=== PATIENT | female | born 1935 ===

== ENCOUNTER → 2016-10-09 | Outpatient (CLI) | payer MEDICARE | LOC: LAB 06:52 | DX: E03.9 Hypothyroidism, unspecified (principal) ==

== ENCOUNTER → 2016-10-24 | Outpatient (CLI) | payer MEDICARE | LOC: LAB 06:40 | DX: I48.91 Unspecified atrial fibrillation (principal) ==

== ENCOUNTER → 2016-10-31 | Outpatient (CLI) | payer MEDICARE | LOC: LAB 06:05 | DX: Z79.01 Long term (current) use of anticoagulants (principal) ==

== ENCOUNTER → 2016-11-28 | Outpatient (CLI) | payer MEDICARE | LOC: LAB 05:26 | DX: Z51.81 Encounter for therapeutic drug level monitoring (principal); Z79.01 Long term (current) use of anticoagulants; I48.91 Unspecified atrial fibrillation ==

== ENCOUNTER → 2017-01-02 | Outpatient (CLI) | payer MEDICARE | LOC: LAB 05:22 | DX: Z79.01 Long term (current) use of anticoagulants (principal); Z51.81 Encounter for therapeutic drug level monitoring; I48.91 Unspecified atrial fibrillation ==

== ENCOUNTER → 2017-01-30 | Outpatient (CLI) | payer MEDICARE | LOC: LAB 06:09 | DX: Z51.81 Encounter for therapeutic drug level monitoring (principal); Z79.01 Long term (current) use of anticoagulants; I48.91 Unspecified atrial fibrillation ==

== ENCOUNTER → 2017-03-03 | Outpatient (CLI) | payer MEDICARE, MEDICAID | LOC: LAB 06:58 | DX: Z51.81 Encounter for therapeutic drug level monitoring (principal); Z79.01 Long term (current) use of anticoagulants; I48.91 Unspecified atrial fibrillation ==

== ENCOUNTER → 2017-03-17 | Outpatient (CLI) | payer MEDICARE, MEDICAID | LOC: LAB 10:15 | DX: Z51.81 Encounter for therapeutic drug level monitoring (principal); Z79.01 Long term (current) use of anticoagulants; I63.9 Cerebral infarction, unspecified ==

== ENCOUNTER → 2017-03-18 | Outpatient (CLI) | payer MEDICARE, MEDICAID | LOC: LAB 08:10 | DX: R41.0 Disorientation, unspecified (principal) ==

== ENCOUNTER → 2017-04-01 | Outpatient (CLI) | payer MEDICARE, MEDICAID | LOC: LAB 05:00 | DX: Z51.81 Encounter for therapeutic drug level monitoring (principal); Z79.01 Long term (current) use of anticoagulants; I48.91 Unspecified atrial fibrillation ==

== ENCOUNTER → 2017-04-07 | Outpatient (CLI) | payer MEDICARE, MEDICAID | LOC: LAB 13:55 | DX: Z51.81 Encounter for therapeutic drug level monitoring (principal); Z79.01 Long term (current) use of anticoagulants ==

== ENCOUNTER → 2017-04-21 | Outpatient (CLI) | payer MEDICARE, MEDICAID | LOC: LAB 06:20 | DX: Z51.81 Encounter for therapeutic drug level monitoring (principal); Z79.01 Long term (current) use of anticoagulants; I63.9 Cerebral infarction, unspecified ==

== ENCOUNTER → 2017-05-19 | Outpatient (CLI) | payer MEDICARE, MEDICAID | LOC: LAB 06:05 | DX: I48.91 Unspecified atrial fibrillation (principal); Z79.01 Long term (current) use of anticoagulants ==

== ENCOUNTER → 2017-06-17 | Outpatient (CLI) | payer MEDICARE, MEDICAID | LOC: LAB 05:10 | DX: I48.91 Unspecified atrial fibrillation (principal); Z79.01 Long term (current) use of anticoagulants ==

== ENCOUNTER → 2017-07-09 | Outpatient (CLI) | payer MEDICARE, MEDICAID | LOC: RAD 14:21 | DX: R22.41 Localized swelling, mass and lump, right lower limb (principal) ==

== ENCOUNTER → 2017-07-15 | Outpatient (CLI) | payer MEDICARE, MEDICAID ==
[2017-07-15 06:03] LABS: CALCIUM 10.2 mg/dL (8.4-10.2)
[2017-07-15 06:33] LABS: POTASSIUM 4.3 mmol/L (3.6-5.0); PROTHROMBIN TIME 19.6 SECONDS (9.0-12.0)
== END ==
LOC: LAB 05:35
PROVIDERS: Family Medicine
DX: I48.91 Unspecified atrial fibrillation (principal); I10 Essential (primary) hypertension; Z79.01 Long term (current) use of anticoagulants

== ENCOUNTER → 2017-08-14 | Outpatient (CLI) | payer MEDICARE, MEDICAID | LOC: LAB 05:37 | PROVIDERS: Family Medicine | DX: G45.9 Transient cerebral ischemic attack, unspecified (principal); Z79.01 Long term (current) use of anticoagulants ==

== ENCOUNTER 2017-08-27 14:57 | Emergency (ER) | payer MEDICARE, MEDICAID ==
[~2017-08-27] VITALS: Ht 152.4 cm; Wt 68.6 kg
[2017-08-27] MEDS ORDERED: ACETAMINOPHEN325 M1 PO (15:18)
[2017-08-27] MEDS ORDERED: OPTIMUM AC500 Millio PO (15:19)
[2017-08-27] MEDS ORDERED: ALBUTEROL2.5 MG/3 M IH (15:20)
[2017-08-27] MEDS ORDERED: COLACE100 M1 PO (15:21)
[2017-08-27] MEDS ORDERED: COUMADIN 4MG4 MG/TAB PO (15:22)
[2017-08-27] MEDS ORDERED: FLEET ENEM1 BOT/133 RC (15:22)
[2017-08-27] MEDS ORDERED: WARFARIN SOD2 MG PO (15:22)
[2017-08-27] MEDS ORDERED: LEVOTHYROXINE100 MC1 PO (15:23)
[2017-08-27] MEDS ORDERED: HYDROCHLOROTH12.5 M2 PO (15:23)
[2017-08-27] MEDS ORDERED: LOPRESSOR 550 MG/TAB PO (15:24)
[2017-08-27] MEDS ORDERED: ZESTRIL5 M1 PO (15:24)
[2017-08-27] MEDS ORDERED: LEVOTHYROXINE0.05 MG PO (15:24)
[2017-08-27] MEDS ORDERED: MS CONTIN 115 MG/TAB PO (15:25)
[2017-08-27] MEDS ORDERED: MULTIVITAMIN1 SGL PO (15:25)
[2017-08-27] MEDS ORDERED: MIRALAX17 GM PO (15:25)
[2017-08-27] MEDS ORDERED: ALUMINUM & MAG355 ML PO (15:27)
[2017-08-27] MEDS ORDERED: ALDACTONE 25MG25 MG PO (15:27)
[2017-08-27] MEDS ORDERED: PRILOSEC 20MG20 MG PO (15:27)
[2017-08-27] MEDS ORDERED: TRAMADOL 50 MG TAB PO (15:27)
[2017-08-27 16:23] VITALS: BP 147/92
== END 2017-08-27 17:26 | disposition home or self-care (01) ==
LOC: ED 14:57
DX: D17.23 Benign lipomatous neoplasm of skin and subcutaneous tissue of right leg (principal); I48.91 Unspecified atrial fibrillation; Z79.01 Long term (current) use of anticoagulants; I25.10 Atherosclerotic heart disease of native coronary artery without angina pectoris; F03.90 Unspecified dementia, unspecified severity, without behavioral disturbance, psychotic disturbance, mood disturbance, and anxiety; I95.9 Hypotension, unspecified; E11.9 Type 2 diabetes mellitus without complications; F41.9 Anxiety disorder, unspecified; K21.9 Gastro-esophageal reflux disease without esophagitis; E03.9 Hypothyroidism, unspecified; Z86.73 Personal history of transient ischemic attack (TIA), and cerebral infarction without residual deficits

== ENCOUNTER → 2017-09-11 | Outpatient (CLI) | payer MEDICARE, MEDICAID ==
[2017-08-27 16:23] VITALS: BP 147/92
[~2017-09-11] MED LIST: ACETAMINOPHEN325 M1 PO; ALBUTEROL2.5 MG/3 M IH; ALDACTONE 25MG25 MG PO; ALUMINUM & MAG355 ML PO; COLACE100 M1 PO; COUMADIN 4MG4 MG/TAB PO; FLEET ENEM1 BOT/133 RC; HYDROCHLOROTH12.5 M2 PO; LEVOTHYROXINE0.05 MG PO; LEVOTHYROXINE100 MC1 PO; LOPRESSOR 550 MG/TAB PO; MIRALAX17 GM PO; MS CONTIN 115 MG/TAB PO; MULTIVITAMIN1 SGL PO; OPTIMUM AC500 Millio PO; PRILOSEC 20MG20 MG PO; TRAMADOL 50 MG TAB PO; WARFARIN SOD2 MG PO; ZESTRIL5 M1 PO
[2017-09-11 06:33] LABS: PROTHROMBIN TIME 26.6 SECONDS (9.0-12.0)
== END ==
LOC: LAB 05:30
PROVIDERS: Family Medicine
DX: G45.9 Transient cerebral ischemic attack, unspecified (principal); Z79.01 Long term (current) use of anticoagulants

== ENCOUNTER → 2017-09-15 | Outpatient (CLI) | payer MEDICARE, MEDICAID ==
[2017-08-27 16:23] VITALS: BP 147/92
== END ==
LOC: LAB 07:13
PROVIDERS: Family Medicine
DX: I48.91 Unspecified atrial fibrillation (principal)

== ENCOUNTER → 2017-10-16 | Outpatient (CLI) | payer MEDICARE, MEDICAID ==
[2017-10-16 06:30] LABS: PROTHROMBIN TIME 25.7 SECONDS (9.0-12.0)
== END ==
LOC: LAB 06:01
PROVIDERS: Family Medicine
DX: Z51.81 Encounter for therapeutic drug level monitoring (principal); Z79.01 Long term (current) use of anticoagulants

== ENCOUNTER → 2017-11-12 | Outpatient (CLI) | payer MEDICARE, MEDICAID ==
[2017-11-12 06:09] LABS: BUN/CREATININE RATIO 18.4 (6.0-26.0); CALCIUM 9.5 mg/dL (8.4-10.2); POTASSIUM 4.9 mmol/L (3.6-5.0)
[2017-11-12 14:20] LABS: URINE APPEARANCE HAZY; URINE COLOR YELLOW
[2017-11-12 14:21] LABS: URINE BILIRUBIN NEGATIVE (NEGATIVE); URINE BLOOD NEGATIVE (NEGATIVE); URINE GLUCOSE NEGATIVE (NEGATIVE); URINE KETONE NEGATIVE (NEGATIVE); URINE LEUKOCYTE ESTERASE 2+ (NEGATIVE); URINE NITRATE NEGATIVE (NEGATIVE); URINE PROTEIN(semi-quant) TRACE mg/dL (NEGATIVE); URINE UROBILINOGEN NORMAL (NORMAL); URINE WBC 31-50 /hpf (0-3)
== END ==
LOC: LAB 05:34
PROVIDERS: Family Medicine
DX: R41.0 Disorientation, unspecified (principal)

== ENCOUNTER → 2017-11-14 | Outpatient (CLI) | payer MEDICARE, MEDICAID ==
[2017-11-14 07:48] LABS: PROTHROMBIN TIME 75.7 SECONDS (9.0-12.0)
== END ==
LOC: LAB 06:30
PROVIDERS: Family Medicine
DX: I48.91 Unspecified atrial fibrillation (principal); Z79.01 Long term (current) use of anticoagulants

== ENCOUNTER → 2017-11-17 | Outpatient (CLI) | payer MEDICARE, MEDICAID ==
[2017-11-17 12:05] LABS: PROTHROMBIN TIME 20.8 SECONDS (9.0-12.0)
== END ==
LOC: LAB 11:20
PROVIDERS: Family Medicine
DX: Z79.01 Long term (current) use of anticoagulants (principal); Z86.73 Personal history of transient ischemic attack (TIA), and cerebral infarction without residual deficits

== ENCOUNTER → 2017-12-15 | Outpatient (CLI) | payer MEDICARE, MEDICAID ==
[2017-12-15 13:28] LABS: PROTHROMBIN TIME 14.4 SECONDS (9.0-12.0)
== END ==
LOC: LAB 12:41
PROVIDERS: Family Medicine
DX: I73.9 Peripheral vascular disease, unspecified (principal); G45.9 Transient cerebral ischemic attack, unspecified; Z79.01 Long term (current) use of anticoagulants

== ENCOUNTER → 2017-12-29 | Outpatient (CLI) | payer MEDICARE, MEDICAID ==
[2017-12-29 07:30] LABS: PROTHROMBIN TIME 22.4 SECONDS (9.0-12.0)
== END ==
LOC: LAB 07:16
PROVIDERS: Family Medicine
DX: G45.9 Transient cerebral ischemic attack, unspecified (principal); Z79.01 Long term (current) use of anticoagulants

== ENCOUNTER → 2018-01-30 | Outpatient (CLI) | payer MEDICARE, MEDICAID ==
[2018-01-30 11:22] LABS: PROTHROMBIN TIME 19.2 SECONDS (9.0-12.0)
== END ==
LOC: LAB 09:10
PROVIDERS: Family Medicine
DX: I63.9 Cerebral infarction, unspecified (principal); E03.9 Hypothyroidism, unspecified; E05.90 Thyrotoxicosis, unspecified without thyrotoxic crisis or storm; Z79.01 Long term (current) use of anticoagulants

== ENCOUNTER → 2018-03-02 | Outpatient (CLI) | payer MEDICARE, MEDICAID | LOC: LAB 11:10 | PROVIDERS: Family Medicine | DX: Z51.81 Encounter for therapeutic drug level monitoring (principal); Z79.01 Long term (current) use of anticoagulants ==

== ENCOUNTER → 2018-03-30 | Outpatient (CLI) | payer MEDICARE, MEDICAID ==
[2018-03-30 08:11] LABS: PROTHROMBIN TIME 17.8 SECONDS (9.0-12.0)
== END ==
LOC: LAB 07:06
PROVIDERS: Family Medicine
DX: Z51.81 Encounter for therapeutic drug level monitoring (principal); Z79.01 Long term (current) use of anticoagulants; I48.91 Unspecified atrial fibrillation

== ENCOUNTER → 2018-04-30 | Outpatient (CLI) | payer MEDICARE, MEDICAID ==
[2018-04-30 07:36] LABS: PROTHROMBIN TIME 29.4 SECONDS (9.0-12.0)
== END ==
LOC: LAB 06:50
PROVIDERS: Family Medicine
DX: I63.9 Cerebral infarction, unspecified (principal)

== ENCOUNTER → 2018-05-14 | Outpatient (CLI) | payer MEDICARE, MEDICAID ==
[2018-05-14 06:44] LABS: PROTHROMBIN TIME 29.6 SECONDS (9.0-12.0)
== END ==
LOC: LAB 06:05
PROVIDERS: Family Medicine
DX: Z51.81 Encounter for therapeutic drug level monitoring (principal); Z79.01 Long term (current) use of anticoagulants; I48.91 Unspecified atrial fibrillation

== ENCOUNTER → 2018-06-11 | Outpatient (CLI) | payer MEDICARE, MEDICAID ==
[2018-06-11 07:04] LABS: PROTHROMBIN TIME 21.1 SECONDS (9.0-12.0)
== END ==
LOC: LAB 06:25
PROVIDERS: Family Medicine
DX: Z51.81 Encounter for therapeutic drug level monitoring (principal); Z79.01 Long term (current) use of anticoagulants; I48.91 Unspecified atrial fibrillation

== ENCOUNTER → 2018-07-04 | Outpatient (CLI) | payer MEDICARE, MEDICAID ==
[2018-07-04 11:20] LABS: URINE APPEARANCE CLEAR; URINE BILIRUBIN NEGATIVE (NEGATIVE); URINE BLOOD NEGATIVE (NEGATIVE); URINE COLOR YELLOW; URINE GLUCOSE NEGATIVE (NEGATIVE); URINE KETONE NEGATIVE (NEGATIVE); URINE LEUKOCYTE ESTERASE NEGATIVE (NEGATIVE); URINE NITRATE NEGATIVE (NEGATIVE); URINE PROTEIN(semi-quant) NEGATIVE (NEGATIVE); URINE UROBILINOGEN NORMAL (NORMAL); URINE WBC 0-1 /hpf (0-3)
== END ==
LOC: LAB 10:35
PROVIDERS: Nurse Practitioner Family
DX: R45.1 Restlessness and agitation (principal); R41.0 Disorientation, unspecified; F60.9 Personality disorder, unspecified

== ENCOUNTER → 2018-07-09 | Outpatient (CLI) | payer MEDICARE, MEDICAID ==
[2018-07-09 08:14] LABS: PROTHROMBIN TIME 29.4 SECONDS (9.0-12.0)
== END ==
LOC: LAB 06:30
PROVIDERS: Family Medicine
DX: Z51.81 Encounter for therapeutic drug level monitoring (principal); Z79.01 Long term (current) use of anticoagulants; I48.91 Unspecified atrial fibrillation

== ENCOUNTER → 2018-07-23 | Outpatient (CLI) | payer MEDICARE, MEDICAID ==
[2018-07-23 07:55] LABS: PROTHROMBIN TIME 31.4 SECONDS (9.0-12.0)
== END ==
LOC: LAB 07:34
PROVIDERS: Family Medicine
DX: I48.91 Unspecified atrial fibrillation (principal); Z79.01 Long term (current) use of anticoagulants

== ENCOUNTER → 2018-08-06 | Outpatient (CLI) | payer MEDICARE, MEDICAID | LOC: LAB 05:20 | PROVIDERS: Family Medicine | DX: Z79.01 Long term (current) use of anticoagulants (principal) ==

== ENCOUNTER → 2018-08-13 | Outpatient (CLI) | payer MEDICARE, MEDICAID ==
[2018-08-13 06:09] LABS: PROTHROMBIN TIME 22.1 SECONDS (9.0-12.0)
== END ==
LOC: LAB 05:25
PROVIDERS: Family Medicine
DX: Z51.81 Encounter for therapeutic drug level monitoring (principal); Z79.01 Long term (current) use of anticoagulants; I48.91 Unspecified atrial fibrillation

== ENCOUNTER → 2018-09-10 | Outpatient (CLI) | payer MEDICARE, MEDICAID ==
[2018-09-10 08:45] LABS: PROTHROMBIN TIME 20.7 SECONDS (9.0-12.0)
== END ==
LOC: LAB 06:55
PROVIDERS: Family Medicine
DX: Z51.81 Encounter for therapeutic drug level monitoring (principal); Z79.01 Long term (current) use of anticoagulants; I48.91 Unspecified atrial fibrillation

== ENCOUNTER → 2018-09-24 | Outpatient (CLI) | payer MEDICARE, MEDICAID ==
[2018-09-25 07:24] LABS: PH-URINE 6.5 (5.0 - 8.0); URINE APPEARANCE CLOUDY; URINE BILIRUBIN NEGATIVE (NEGATIVE); URINE BLOOD NEGATIVE (NEGATIVE); URINE COLOR YELLOW; URINE GLUCOSE NEGATIVE (NEGATIVE); URINE KETONE NEGATIVE (NEGATIVE); URINE LEUKOCYTE ESTERASE 1+ (NEGATIVE); URINE MUCUS PRESENT (NOT PRESENT); URINE NITRATE NEGATIVE (NEGATIVE); URINE PROTEIN(semi-quant) 1+ mg/dL (NEGATIVE); URINE UROBILINOGEN NORMAL (NORMAL)
== END ==
LOC: LAB 18:30
PROVIDERS: Family Medicine
DX: R44.1 Visual hallucinations (principal)

== ENCOUNTER → 2018-09-24 | Outpatient (CLI) | payer MEDICARE, MEDICAID ==
[2018-09-24 12:11] LABS: ALBUMIN 4.3 g/dL (3.5-5.0); POTASSIUM 4.6 mmol/L (3.6-5.0)
== END ==
LOC: LAB 11:54
PROVIDERS: Family Medicine
DX: R44.1 Visual hallucinations (principal)

== ENCOUNTER → 2018-09-28 | Outpatient (CLI) | payer MEDICARE, MEDICAID ==
[2018-09-28 14:32] LABS: ALBUMIN 4.4 g/dL (3.5-5.0); CALCIUM 10.4 mg/dL (8.4-10.2); POTASSIUM 5.1 mmol/L (3.6-5.0); TOTAL PROTEIN 7.4 g/dL (6.3-8.2)
== END ==
LOC: LAB 13:57
PROVIDERS: Family Medicine
DX: E87.1 Hypo-osmolality and hyponatremia (principal)

== ENCOUNTER → 2018-10-09 | Outpatient (CLI) | payer MEDICARE, MEDICAID ==
[2018-10-09 08:36] LABS: POTASSIUM 4.4 mmol/L (3.6-5.0)
== END ==
LOC: LAB 07:05
PROVIDERS: Family Medicine
DX: E87.1 Hypo-osmolality and hyponatremia (principal)

== ENCOUNTER → 2018-10-12 | Outpatient (CLI) | payer MEDICARE, MEDICAID ==
[2018-10-12 12:42] LABS: PROTHROMBIN TIME 25.6 SECONDS (9.0-12.0)
== END ==
LOC: LAB 11:21
PROVIDERS: Family Medicine
DX: I48.91 Unspecified atrial fibrillation (principal)

== ENCOUNTER → 2018-10-20 | Outpatient (CLI) | payer MEDICARE, MEDICAID ==
[2018-10-21 11:12] LABS: PH-URINE 6.5 (5.0 - 8.0); URINE APPEARANCE CLEAR; URINE BILIRUBIN NEGATIVE (NEGATIVE); URINE BLOOD NEGATIVE (NEGATIVE); URINE COLOR YELLOW; URINE GLUCOSE NEGATIVE (NEGATIVE); URINE KETONE NEGATIVE (NEGATIVE); URINE LEUKOCYTE ESTERASE NEGATIVE (NEGATIVE); URINE NITRATE NEGATIVE (NEGATIVE); URINE PROTEIN(semi-quant) 1+ mg/dL (NEGATIVE); URINE UROBILINOGEN NORMAL (NORMAL)
== END ==
LOC: LAB 21:55
PROVIDERS: Family Medicine
DX: R41.0 Disorientation, unspecified (principal); R44.3 Hallucinations, unspecified

== ENCOUNTER → 2018-10-20 | Outpatient (CLI) | payer MEDICARE, MEDICAID ==
[2018-10-20 06:29] LABS: CALCIUM 10.4 mg/dL (8.4-10.2); POTASSIUM 4.2 mmol/L (3.6-5.0); TOTAL BILIRUBIN 0.6 mg/dL (0.2-1.3)
== END ==
LOC: LAB 04:55
PROVIDERS: Family Medicine
DX: E78.1 Pure hyperglyceridemia (principal)

== ENCOUNTER → 2018-10-26 | Outpatient (CLI) | payer MEDICARE, MEDICAID ==
[2018-10-26 08:11] LABS: ALBUMIN 3.9 g/dL (3.5-5.0); CALCIUM 10.5 mg/dL (8.4-10.2); POTASSIUM 4.2 mmol/L (3.6-5.0); TOTAL PROTEIN 6.8 g/dL (6.3-8.2)
== END ==
LOC: LAB 06:45
PROVIDERS: Family Medicine
DX: R79.9 Abnormal finding of blood chemistry, unspecified (principal)

== ENCOUNTER → 2018-11-09 | Outpatient (CLI) | payer MEDICARE, MEDICAID ==
[2018-11-09 10:55] LABS: PROTHROMBIN TIME 23.9 SECONDS (9.0-12.0)
== END ==
LOC: LAB 09:25
PROVIDERS: Family Medicine
DX: Z51.81 Encounter for therapeutic drug level monitoring (principal); Z79.01 Long term (current) use of anticoagulants; I48.91 Unspecified atrial fibrillation

== ENCOUNTER → 2018-12-07 | Outpatient (CLI) | payer MEDICARE, MEDICAID ==
[2018-12-07 14:24] LABS: PROTHROMBIN TIME 21.4 SECONDS (9.0-12.0)
== END ==
LOC: LAB 13:40
PROVIDERS: Family Medicine
DX: I48.91 Unspecified atrial fibrillation (principal)

== ENCOUNTER → 2019-01-07 | Outpatient (CLI) | payer MEDICARE, MEDICAID | LOC: LAB 07:30 | PROVIDERS: Physician Assistant Medical | DX: I48.91 Unspecified atrial fibrillation (principal); Z79.01 Long term (current) use of anticoagulants ==

== ENCOUNTER → 2019-02-05 | Outpatient (CLI) | payer MEDICARE, MEDICAID ==
[2019-02-05 07:28] LABS: PROTHROMBIN TIME 24.5 SECONDS (9.0-12.0)
== END ==
LOC: LAB 06:40
PROVIDERS: Family Medicine
DX: I63.9 Cerebral infarction, unspecified (principal); Z79.01 Long term (current) use of anticoagulants

== ENCOUNTER → 2019-03-08 | Outpatient (CLI) | payer MEDICARE, MEDICAID ==
[2019-03-08 09:14] LABS: PROTHROMBIN TIME 20.2 SECONDS (9.0-12.0)
== END ==
LOC: LAB 06:56
PROVIDERS: Family Medicine
DX: I48.91 Unspecified atrial fibrillation (principal)

== ENCOUNTER → 2019-04-07 | Outpatient (CLI) | payer MEDICARE, MEDICAID ==
[2019-04-07 07:49] LABS: PROTHROMBIN TIME 16.8 SECONDS (9.0-12.0)
== END ==
LOC: LAB 06:18
PROVIDERS: Family Medicine
DX: G45.9 Transient cerebral ischemic attack, unspecified (principal); I73.9 Peripheral vascular disease, unspecified

== ENCOUNTER → 2019-04-22 | Outpatient (CLI) | payer MEDICARE, MEDICAID ==
[2019-04-22 07:34] LABS: PROTHROMBIN TIME 18.3 SECONDS (9.0-12.0)
== END ==
LOC: LAB 06:05
PROVIDERS: Physician Assistant
DX: G45.9 Transient cerebral ischemic attack, unspecified (principal)

== ENCOUNTER → 2019-05-21 | Outpatient (CLI) | payer MEDICARE, MEDICAID ==
[2019-05-21 07:14] LABS: PROTHROMBIN TIME 20.5 SECONDS (9.0-12.0)
== END ==
LOC: LAB 06:15
PROVIDERS: Family Medicine
DX: I48.91 Unspecified atrial fibrillation (principal); I63.9 Cerebral infarction, unspecified

== ENCOUNTER → 2019-06-21 | Outpatient (CLI) | payer MEDICARE, MEDICAID ==
[2019-06-21 08:22] LABS: PROTHROMBIN TIME 19.9 SECONDS (9.0-12.0)
== END ==
LOC: LAB 07:43
PROVIDERS: Family Medicine
DX: I22.2 Subsequent non-ST elevation (NSTEMI) myocardial infarction (principal); Z79.01 Long term (current) use of anticoagulants

== ENCOUNTER → 2019-07-19 | Outpatient (CLI) | payer MEDICARE, MEDICAID ==
[2019-07-19 07:28] LABS: PROTHROMBIN TIME 18.5 SECONDS (9.0-12.0)
== END ==
LOC: LAB 06:30
PROVIDERS: Family Medicine
DX: I48.91 Unspecified atrial fibrillation (principal); Z79.01 Long term (current) use of anticoagulants

== ENCOUNTER → 2019-07-23 | Outpatient (CLI) | payer MEDICARE, MEDICAID | LOC: LAB 05:30 | PROVIDERS: Family Medicine | DX: I48.91 Unspecified atrial fibrillation (principal) ==

== ENCOUNTER → 2019-07-26 | Outpatient (CLI) | payer MEDICARE, MEDICAID ==
[2019-07-26 07:57] LABS: PROTHROMBIN TIME 48.8 SECONDS (9.0-12.0)
== END ==
LOC: LAB 06:58
PROVIDERS: Family Medicine
DX: I48.91 Unspecified atrial fibrillation (principal); Z79.01 Long term (current) use of anticoagulants

== ENCOUNTER → 2019-08-05 | Outpatient (CLI) | payer MEDICARE, MEDICAID ==
[2019-08-05 09:03] LABS: PROTHROMBIN TIME 22.1 SECONDS (9.0-12.0)
== END ==
LOC: LAB 06:45
PROVIDERS: Family Medicine
DX: I48.91 Unspecified atrial fibrillation (principal)

== ENCOUNTER → 2019-08-16 | Outpatient (CLI) | payer MEDICARE, MEDICAID ==
[2019-08-16 08:45] LABS: PROTHROMBIN TIME 21.3 SECONDS (9.0-12.0)
== END ==
LOC: LAB 07:38
PROVIDERS: Family Medicine
DX: I48.91 Unspecified atrial fibrillation (principal)

== ENCOUNTER → 2019-09-13 | Outpatient (CLI) | payer MEDICARE, MEDICAID ==
[2019-09-13 09:14] LABS: PROTHROMBIN TIME 22.3 SECONDS (9.0-12.0)
== END ==
LOC: LAB 06:35
PROVIDERS: Family Medicine
DX: Z51.81 Encounter for therapeutic drug level monitoring (principal); Z79.01 Long term (current) use of anticoagulants

== ENCOUNTER → 2019-10-11 | Outpatient (CLI) | payer MEDICARE, MEDICAID | LOC: LAB 08:09 | PROVIDERS: Family Medicine | DX: I48.91 Unspecified atrial fibrillation (principal) ==

== ENCOUNTER → 2019-11-08 | Outpatient (CLI) | payer MEDICARE, MEDICAID ==
[2019-11-08 07:33] LABS: PROTHROMBIN TIME 23.7 SECONDS (9.0-12.0)
== END ==
LOC: LAB 06:43
PROVIDERS: Family Medicine
DX: Z01.89 Encounter for other specified special examinations (principal)

== ENCOUNTER → 2019-12-06 | Outpatient (CLI) | payer MEDICARE, MEDICAID | LOC: LAB 07:52 | PROVIDERS: Family Medicine | DX: I48.91 Unspecified atrial fibrillation (principal) ==

== ENCOUNTER → 2019-12-29 | Outpatient (CLI) | payer MEDICARE, MEDICAID | LOC: LAB 07:21 | DX: E03.9 Hypothyroidism, unspecified (principal) ==

== ENCOUNTER → 2020-01-07 | Outpatient (CLI) | payer MEDICARE, MEDICAID ==
[2020-01-07 14:25] LABS: PROTHROMBIN TIME 29.9 SECONDS (9.0-12.0)
== END ==
LOC: LAB 13:45
PROVIDERS: Family Medicine
DX: G45.9 Transient cerebral ischemic attack, unspecified (principal)

== ENCOUNTER → 2020-01-24 | Outpatient (CLI) | payer MEDICARE, MEDICAID ==
[2020-01-24 11:13] LABS: PROTHROMBIN TIME 32.6 SECONDS (9.0-12.0)
[2020-01-24 18:30] LABS: URINE APPEARANCE CLOUDY; URINE BILIRUBIN NEGATIVE (NEGATIVE); URINE BLOOD TRACE (NEGATIVE); URINE COLOR YELLOW; URINE GLUCOSE NEGATIVE (NEGATIVE); URINE KETONE NEGATIVE (NEGATIVE); URINE LEUKOCYTE ESTERASE 1+ (NEGATIVE); URINE NITRATE POSITIVE (NEGATIVE); URINE PROTEIN(semi-quant) TRACE mg/dL (NEGATIVE); URINE UROBILINOGEN NORMAL (NORMAL); URINE WBC >50 /hpf (0-3)
== END ==
LOC: LAB 10:59
PROVIDERS: Family Medicine
DX: Z51.81 Encounter for therapeutic drug level monitoring (principal); Z79.01 Long term (current) use of anticoagulants

== ENCOUNTER 2020-02-01 16:12 | Observation (INO) | payer MEDICARE, MEDICAID ==
[~2020-02-01] VITALS: Ht 160 cm; Wt 71.5 kg
[~2020-02-01 16:12] MED LIST changes: +COUMADIN 2MG2 MG/TAB PO; -WARFARIN SOD2 MG PO
[2020-02-01 17:49] LABS: EOS # 0.1 (0.04-0.40); EOS % 0.9 % (1.0-5.0); HEMATOCRIT 40.9 % (37.0-47.0); HEMOGLOBIN 13.2 g/dL (12.5-16.0); LYMPH# 1.4 (1.50-4.00); MEAN CELL VOLUME 90 fl (78-100); MEAN CORPUSCULAR HEMOGLOBIN 29 pg (27-31); MEAN CORPUSCULAR HGB CONC 32 g/dL (33-37); MEAN PLATELET VOLUME 9.7 fl (7.4-10.4); MONO # 0.2 (0.20-0.80); PLATELET COUNT 188 K/mm3 (130-400); RED BLOOD COUNT 4.57 M/mm3 (4.10-5.30); RED CELL DISTRIBUTION WIDTH 14.1 % (11.5-14.5); WHITE BLOOD COUNT 7.7 K/mm3 (4.8-10.8)
[2020-02-01 18:00] LABS: ALBUMIN 3.8 g/dL (3.4-4.8)
[2020-02-01 18:01] LABS: POTASSIUM 4.6 mmol/L (3.5-5.1)
[2020-02-01 18:03] LABS: TOTAL PROTEIN 6.7 g/dL (6.2-8.1)
[2020-02-01 18:05] LABS: TOTAL BILIRUBIN 0.6 mg/dL (0.2-1.2)
[2020-02-01] MEDS ORDERED: ICY HOT PAIN70.8 GM TP (18:12)
[2020-02-01] MEDS ORDERED: CLARITIN 1010 MG/TAB PO (18:13)
[2020-02-01] MEDS ORDERED: HALLS5 MG MM (18:15)
[2020-02-01] MEDS ORDERED: PREDNISONE20 M1 PO (18:19)
[2020-02-01] MEDS ORDERED: DESENEX43 GM TP (18:22)
[2020-02-01 19:09] LABS: PROTHROMBIN TIME 44.3 SECONDS (9.0-12.0)
[2020-02-01 19:11] LABS: ERYTHROCYTE SEDIMENTATION RATE 31 mm/hr (0-30)
[2020-02-01 20:20] LABS: PH-URINE 5.5 (5.0 - 8.0); URINE APPEARANCE CLEAR; URINE BILIRUBIN NEGATIVE (NEGATIVE); URINE BLOOD NEGATIVE (NEGATIVE); URINE COLOR YELLOW; URINE GLUCOSE NEGATIVE (NEGATIVE); URINE KETONE NEGATIVE (NEGATIVE); URINE LEUKOCYTE ESTERASE NEGATIVE (NEGATIVE); URINE NITRATE NEGATIVE (NEGATIVE); URINE PROTEIN(semi-quant) TRACE mg/dL (NEGATIVE); URINE UROBILINOGEN NORMAL (NORMAL); URINE WBC 0-1 /hpf (0-3)
[2020-02-01 20:35] VITALS: BP 114/66
[2020-02-01 22:19] VITALS: BP 102/67
[2020-02-01 23:32] VITALS: BP 97/62
[2020-02-02 01:59] VITALS: BP 118/74
[2020-02-02 05:40] VITALS: BP 108/68
[2020-02-02 06:27] LABS: HEMATOCRIT 37.6 % (37.0-47.0); HEMOGLOBIN 12.1 g/dL (12.5-16.0); LYMPH# 1.4 (1.50-4.00); MEAN CELL VOLUME 90 fl (78-100); MEAN CORPUSCULAR HEMOGLOBIN 29 pg (27-31); MEAN CORPUSCULAR HGB CONC 32 g/dL (33-37); MONO # 0.3 (0.20-0.80); NEU # 5.3 (1.40-6.50); PLATELET COUNT 197 K/mm3 (130-400); RED CELL DISTRIBUTION WIDTH 14.1 % (11.5-14.5)
[2020-02-02 06:38] LABS: ALBUMIN 3.6 g/dL (3.4-4.8); POTASSIUM 4.1 mmol/L (3.5-5.1)
[2020-02-02 06:39] LABS: CALCIUM 9.7 mg/dL (8.3-10.5)
[2020-02-02 06:40] LABS: TOTAL PROTEIN 6.1 g/dL (6.2-8.1)
[2020-02-02 06:42] LABS: TOTAL BILIRUBIN 0.7 mg/dL (0.2-1.2)
[2020-02-02 07:29] LABS: ERYTHROCYTE SEDIMENTATION RATE 30 mm/hr (0-30)
[2020-02-02 09:51] VITALS: BP 131/54
[2020-02-02 12:32] LABS: PROTHROMBIN TIME 38.9 SECONDS (9.0-12.0)
[2020-02-02 13:30] VITALS: BP 116/62
== END 2020-02-02 14:01 | disposition home or self-care (01) ==
LOC: ED 16:12 → MED/SURG 19:55 → ED 19:55 → MED/SURG 20:10
PROVIDERS: Physician Assistant; ADMIT Nurse Practitioner Family
DX: L30.9 Dermatitis, unspecified (principal); I48.91 Unspecified atrial fibrillation; F03.90 Unspecified dementia, unspecified severity, without behavioral disturbance, psychotic disturbance, mood disturbance, and anxiety; I10 Essential (primary) hypertension; E03.9 Hypothyroidism, unspecified; L40.9 Psoriasis, unspecified; K21.9 Gastro-esophageal reflux disease without esophagitis; I73.9 Peripheral vascular disease, unspecified; Z86.73 Personal history of transient ischemic attack (TIA), and cerebral infarction without residual deficits; Z79.01 Long term (current) use of anticoagulants; Z79.899 Other long term (current) drug therapy; Z95.0 Presence of cardiac pacemaker; F41.9 Anxiety disorder, unspecified; Z88.0 Allergy status to penicillin; Z88.2 Allergy status to sulfonamides; Z88.8 Allergy status to other drugs, medicaments and biological substances; Z88.1 Allergy status to other antibiotic agents; Z91.041 Radiographic dye allergy status
CPT/HCPCS: G0378; J1200; J2930; J3490; J7120; J7512

== ENCOUNTER → 2020-02-05 | Outpatient (CLI) | payer MEDICARE, MEDICAID ==
[2020-02-02 13:30] VITALS: BP 116/62
[~2020-02-05] MED LIST changes: +CLARITIN 1010 MG/TAB PO; +DESENEX43 GM TP; +HALLS5 MG MM; +ICY HOT PAIN70.8 GM TP; +PREDNISONE20 M1 PO
[2020-02-05 08:02] LABS: PROTHROMBIN TIME 24.6 SECONDS (9.0-12.0)
== END ==
LOC: LAB 07:35
PROVIDERS: Family Medicine
DX: I48.91 Unspecified atrial fibrillation (principal); Z79.01 Long term (current) use of anticoagulants

== ENCOUNTER → 2020-03-09 | Outpatient (CLI) | payer MEDICARE, MEDICAID ==
[2020-03-09 11:19] LABS: PROTHROMBIN TIME 39.6 SECONDS (9.0-12.0)
== END ==
LOC: LAB 10:05
PROVIDERS: Family Medicine
DX: I48.91 Unspecified atrial fibrillation (principal)

== ENCOUNTER → 2020-03-23 | Outpatient (CLI) | payer MEDICARE, MEDICAID | LOC: LAB 11:13 | PROVIDERS: Family Medicine | DX: I48.91 Unspecified atrial fibrillation (principal); Z79.01 Long term (current) use of anticoagulants ==

== ENCOUNTER → 2020-03-30 | Outpatient (CLI) | payer MEDICARE, MEDICAID | LOC: LAB 08:30 | PROVIDERS: Family Medicine | DX: Z51.81 Encounter for therapeutic drug level monitoring (principal); Z79.01 Long term (current) use of anticoagulants ==

== ENCOUNTER → 2020-04-03 | Outpatient (CLI) | payer MEDICARE, MEDICAID ==
[2020-04-03 11:31] LABS: PROTHROMBIN TIME 34.4 SECONDS (9.0-12.0)
== END ==
LOC: LAB 10:43
PROVIDERS: Family Medicine
DX: Z51.81 Encounter for therapeutic drug level monitoring (principal); Z79.01 Long term (current) use of anticoagulants

== ENCOUNTER → 2020-04-17 | Outpatient (CLI) | payer MEDICARE, MEDICAID ==
[2020-04-17 11:41] LABS: PROTHROMBIN TIME 23.8 SECONDS (9.0-12.0)
== END ==
LOC: LAB 11:09
PROVIDERS: Family Medicine
DX: G45.9 Transient cerebral ischemic attack, unspecified (principal); Z79.01 Long term (current) use of anticoagulants

== ENCOUNTER → 2020-05-15 | Outpatient (CLI) | payer MEDICARE, MEDICAID ==
[2020-05-15 10:18] LABS: PROTHROMBIN TIME 21.9 SECONDS (9.0-12.0)
== END ==
LOC: LAB 09:36
PROVIDERS: Family Medicine
DX: I48.91 Unspecified atrial fibrillation (principal)

== ENCOUNTER → 2020-06-12 | Outpatient (CLI) | payer MEDICARE, MEDICAID ==
[2020-06-12 13:36] LABS: PROTHROMBIN TIME 18.6 SECONDS (9.0-12.0)
== END ==
LOC: LAB 12:03
PROVIDERS: Family Medicine
DX: I48.91 Unspecified atrial fibrillation (principal)

== ENCOUNTER → 2020-07-10 | Outpatient (CLI) | payer MEDICARE, MEDICAID ==
[2020-07-10 11:34] LABS: PROTHROMBIN TIME 26.1 SECONDS (9.0-12.0)
== END ==
LOC: LAB 10:50
PROVIDERS: Family Medicine
DX: I48.91 Unspecified atrial fibrillation (principal)

== ENCOUNTER → 2020-08-07 | Outpatient (CLI) | payer MEDICARE, MEDICAID ==
[2020-08-07 08:14] LABS: PROTHROMBIN TIME 19.5 SECONDS (9.0-12.0)
== END ==
LOC: LAB 06:55
PROVIDERS: Family Medicine
DX: I48.91 Unspecified atrial fibrillation (principal)

== ENCOUNTER → 2020-09-04 | Outpatient (CLI) | payer MEDICARE, MEDICAID ==
[~2020-09-04] MED LIST changes: +ACIDOPHILUS1 EAC2 PO; +AIRDUO DIGIHAL1 EACH IH; +CERAVE MOISTUR453 GM TP; +MACROBID 100 M100 MG PO; +MYLANTA MAXIMU355 M1 PO; +PAIN-RELIEF85 GM TP; +PHENERGAN 25 TA25 MG PO; +WARFARIN SODIUM2 MG PO
[2020-09-04 12:25] LABS: URINE COLOR YELLOW
[2020-09-04 12:26] LABS: PH-URINE 5.5 (5.0 - 8.0); URINE APPEARANCE CLOUDY; URINE BILIRUBIN NEGATIVE (NEGATIVE); URINE BLOOD TRACE (NEGATIVE); URINE GLUCOSE NEGATIVE (NEGATIVE); URINE KETONE NEGATIVE (NEGATIVE); URINE LEUKOCYTE ESTERASE 2+ (NEGATIVE); URINE NITRATE NEGATIVE (NEGATIVE); URINE PROTEIN(semi-quant) TRACE mg/dL (NEGATIVE); URINE UROBILINOGEN NORMAL (NORMAL)
[2020-09-04 12:27] LABS: URINE MUCUS PRESENT (NOT PRESENT)
[2020-09-04 12:50] LABS: PROTHROMBIN TIME 44.5 SECONDS (9.0-12.0)
== END ==
LOC: LAB 11:11
PROVIDERS: Family Medicine
DX: I48.91 Unspecified atrial fibrillation (principal); Z79.01 Long term (current) use of anticoagulants

== ENCOUNTER 2020-09-06 20:35 | Emergency (ER) | payer MEDICARE, MEDICAID ==
[~2020-09-06 20:35] MED LIST changes: -ACIDOPHILUS1 EAC2 PO; -AIRDUO DIGIHAL1 EACH IH; -CERAVE MOISTUR453 GM TP; -MACROBID 100 M100 MG PO; -MYLANTA MAXIMU355 M1 PO; -PAIN-RELIEF85 GM TP; -PHENERGAN 25 TA25 MG PO; -WARFARIN SODIUM2 MG PO
[2020-09-06] MEDS ORDERED: ACIDOPHILUS1 EAC2 PO (21:43)
[2020-09-06] MEDS ORDERED: PAIN-RELIEF85 GM TP (21:44)
[2020-09-06] MEDS ORDERED: CLARITIN 1010 MG/TAB PO (21:45)
[2020-09-06] MEDS ORDERED: CERAVE MOISTUR453 GM TP (21:45)
[2020-09-06] MEDS ORDERED: WARFARIN SODIUM2 MG PO (21:46)
[2020-09-06] MEDS ORDERED: AIRDUO DIGIHAL1 EACH IH (21:47)
[2020-09-06] MEDS ORDERED: PHENERGAN 25 TA25 MG PO (21:49)
[2020-09-06 21:50] LABS: EOS # 0.1 (0.04-0.40); EOS % 0.6 % (1.0-5.0); HEMATOCRIT 40.9 % (37.0-47.0); HEMOGLOBIN 13.7 g/dL (12.5-16.0); MEAN CELL VOLUME 87 fl (78-100); MEAN CORPUSCULAR HEMOGLOBIN 29 pg (27-31); MEAN CORPUSCULAR HGB CONC 34 g/dL (33-37); MEAN PLATELET VOLUME 9.5 fl (7.4-10.4); MONO # 1.2 (0.20-0.80); NEU # 8.8 (1.40-6.50); PLATELET COUNT 216 K/mm3 (130-400); RED BLOOD COUNT 4.73 M/mm3 (4.10-5.30); WHITE BLOOD COUNT 13.3 K/mm3 (4.8-10.8)
[2020-09-06] MEDS ORDERED: MYLANTA MAXIMU355 M1 PO (21:50)
[2020-09-06 21:57] LABS: ALBUMIN 3.4 g/dL (3.4-4.8); POTASSIUM 4.9 mmol/L (3.5-5.1)
[2020-09-06 21:58] LABS: CALCIUM 10.1 mg/dL (8.3-10.5)
[2020-09-06 22:00] LABS: TOTAL PROTEIN 6.6 g/dL (6.2-8.1)
[2020-09-06 22:01] LABS: TOTAL BILIRUBIN 0.6 mg/dL (0.2-1.2)
[2020-09-06 23:20] LABS: PROTHROMBIN TIME 40.4 SECONDS (9.0-12.0)
[2020-09-06] MEDS ORDERED: MACROBID 100 M100 MG PO (23:37)
[2020-09-06 23:56] VITALS: BP 113/60
== END 2020-09-06 23:56 | disposition home or self-care (01) ==
LOC: ED 20:35
PROVIDERS: Physician Assistant
DX: R41.0 Disorientation, unspecified (principal); N39.0 Urinary tract infection, site not specified; Z91.81 History of falling; I10 Essential (primary) hypertension; E03.9 Hypothyroidism, unspecified; I48.91 Unspecified atrial fibrillation; Z86.73 Personal history of transient ischemic attack (TIA), and cerebral infarction without residual deficits; Z95.0 Presence of cardiac pacemaker; Z88.0 Allergy status to penicillin; Z88.1 Allergy status to other antibiotic agents; Z88.2 Allergy status to sulfonamides; Z88.6 Allergy status to analgesic agent; Z79.01 Long term (current) use of anticoagulants; Z79.890 Hormone replacement therapy

== ENCOUNTER → 2020-09-08 | Outpatient (CLI) | payer MEDICARE, MEDICAID ==
[2020-09-06 23:56] VITALS: BP 113/60
[~2020-09-08] MED LIST changes: +ACIDOPHILUS1 EAC2 PO; +AIRDUO DIGIHAL1 EACH IH; +CERAVE MOISTUR453 GM TP; +MACROBID 100 M100 MG PO; +MYLANTA MAXIMU355 M1 PO; +PAIN-RELIEF85 GM TP; +PHENERGAN 25 TA25 MG PO; +WARFARIN SODIUM2 MG PO
[2020-09-08 12:55] LABS: HEMOGLOBIN 13.8 g/dL (12.5-16.0); MEAN PLATELET VOLUME 10.1 fl (7.4-10.4); RED BLOOD COUNT 4.83 M/mm3 (4.10-5.30); RED CELL DISTRIBUTION WIDTH 14.3 % (11.5-14.5); WHITE BLOOD COUNT 10.6 K/mm3 (4.8-10.8)
[2020-09-08 13:05] LABS: POTASSIUM 4.3 mmol/L (3.5-5.1)
[2020-09-08 13:06] LABS: CALCIUM 9.7 mg/dL (8.3-10.5)
[2020-09-08 14:07] LABS: PROTHROMBIN TIME 32.2 SECONDS (9.0-12.0)
== END ==
LOC: LAB 10:25
PROVIDERS: Physician Assistant
DX: N39.0 Urinary tract infection, site not specified (principal); D72.829 Elevated white blood cell count, unspecified; N28.9 Disorder of kidney and ureter, unspecified

== ENCOUNTER → 2020-09-11 | Outpatient (CLI) | payer MEDICARE, MEDICAID ==
[2020-09-06 23:56] VITALS: BP 113/60
[2020-09-11 09:18] LABS: PROTHROMBIN TIME 39.6 SECONDS (9.0-12.0)
== END ==
LOC: LAB 06:55
PROVIDERS: Physician Assistant Medical
DX: G45.9 Transient cerebral ischemic attack, unspecified (principal)

== ENCOUNTER → 2020-09-14 | Outpatient (CLI) | payer MEDICARE, MEDICAID ==
[2020-09-06 23:56] VITALS: BP 113/60
== END ==
LOC: LAB 11:15
PROVIDERS: Family Medicine
DX: I48.91 Unspecified atrial fibrillation (principal); G45.9 Transient cerebral ischemic attack, unspecified

== ENCOUNTER → 2020-09-18 | Outpatient (CLI) | payer MEDICARE, MEDICAID ==
[2020-09-06 23:56] VITALS: BP 113/60
[2020-09-18 09:48] LABS: PROTHROMBIN TIME 27.3 SECONDS (9.0-12.0)
== END ==
LOC: LAB 07:37
PROVIDERS: Family Medicine
DX: I48.91 Unspecified atrial fibrillation (principal)

== ENCOUNTER → 2020-09-25 | Outpatient (CLI) | payer MEDICARE, MEDICAID ==
[2020-09-06 23:56] VITALS: BP 113/60
== END ==
LOC: LAB 09:00
PROVIDERS: Family Medicine
DX: I48.91 Unspecified atrial fibrillation (principal)

== ENCOUNTER → 2020-10-27 | Outpatient (CLI) | payer MEDICARE, MEDICAID ==
[2020-10-27 12:06] LABS: URINE APPEARANCE HAZY; URINE BILIRUBIN NEGATIVE (NEGATIVE); URINE COLOR YELLOW; URINE GLUCOSE NEGATIVE (NEGATIVE); URINE KETONE NEGATIVE (NEGATIVE); URINE PROTEIN(semi-quant) TRACE mg/dL (NEGATIVE); URINE UROBILINOGEN NORMAL (NORMAL)
[2020-10-27 12:07] LABS: URINE BLOOD NEGATIVE (NEGATIVE); URINE LEUKOCYTE ESTERASE 2+ (NEGATIVE); URINE MUCUS PRESENT (NOT PRESENT); URINE NITRATE POSITIVE (NEGATIVE); URINE WBC 16-30 /hpf (0-3)
== END ==
LOC: LAB 11:23
PROVIDERS: Family Medicine
DX: R32 Unspecified urinary incontinence (principal); R41.0 Disorientation, unspecified

== ENCOUNTER → 2020-12-27 | Outpatient (CLI) | payer MEDICARE, MEDICAID ==
[2020-12-27 17:29] LABS: URINE APPEARANCE CLOUDY; URINE BILIRUBIN NEGATIVE (NEGATIVE); URINE BLOOD TRACE (NEGATIVE); URINE COLOR YELLOW; URINE GLUCOSE NEGATIVE (NEGATIVE); URINE KETONE NEGATIVE (NEGATIVE); URINE LEUKOCYTE ESTERASE 2+ (NEGATIVE); URINE NITRATE POSITIVE (NEGATIVE); URINE PROTEIN(semi-quant) TRACE mg/dL (NEGATIVE); URINE UROBILINOGEN 1 mg/dL (NORMAL); URINE WBC >50 /hpf (0-3)
== END ==
LOC: LAB 16:39
PROVIDERS: Family Medicine
DX: R45.1 Restlessness and agitation (principal); R44.3 Hallucinations, unspecified

== ENCOUNTER → 2021-01-23 | Outpatient (CLI) | payer MEDICARE, MEDICAID ==
[2021-01-23 07:35] LABS: PH-URINE 6.5 (5.0 - 8.0); URINE APPEARANCE CLOUDY; URINE BILIRUBIN NEGATIVE (NEGATIVE); URINE BLOOD NEGATIVE (NEGATIVE); URINE COLOR YELLOW; URINE GLUCOSE NEGATIVE (NEGATIVE); URINE KETONE NEGATIVE (NEGATIVE); URINE LEUKOCYTE ESTERASE 2+ (NEGATIVE); URINE NITRATE POSITIVE (NEGATIVE); URINE PROTEIN(semi-quant) NEGATIVE (NEGATIVE); URINE UROBILINOGEN NORMAL (NORMAL); URINE WBC >50 /hpf (0-3)
== END ==
LOC: LAB 06:36
PROVIDERS: Family Medicine
DX: F03.90 Unspecified dementia, unspecified severity, without behavioral disturbance, psychotic disturbance, mood disturbance, and anxiety (principal)

== ENCOUNTER → 2021-02-05 | Outpatient (CLI) | payer MEDICARE, MEDICAID ==
[2021-02-05 19:24] LABS: URINE APPEARANCE CLEAR; URINE BILIRUBIN NEGATIVE (NEGATIVE); URINE BLOOD NEGATIVE (NEGATIVE); URINE COLOR YELLOW; URINE GLUCOSE NEGATIVE (NEGATIVE); URINE KETONE NEGATIVE (NEGATIVE); URINE LEUKOCYTE ESTERASE NEGATIVE (NEGATIVE); URINE NITRATE NEGATIVE (NEGATIVE); URINE PROTEIN(semi-quant) TRACE mg/dL (NEGATIVE); URINE UROBILINOGEN NORMAL (NORMAL); URINE WBC 0-1 /hpf (0-3)
== END ==
LOC: LAB 18:25
PROVIDERS: Family Medicine
DX: N39.0 Urinary tract infection, site not specified (principal)

== ENCOUNTER → 2021-02-06 | Outpatient (CLI) | payer MEDICARE, MEDICAID ==
[2021-02-06 14:03] LABS: URINE APPEARANCE CLEAR; URINE BILIRUBIN NEGATIVE (NEGATIVE); URINE BLOOD NEGATIVE (NEGATIVE); URINE COLOR YELLOW; URINE GLUCOSE NEGATIVE (NEGATIVE); URINE KETONE NEGATIVE (NEGATIVE); URINE LEUKOCYTE ESTERASE NEGATIVE (NEGATIVE); URINE NITRATE NEGATIVE (NEGATIVE); URINE PROTEIN(semi-quant) NEGATIVE (NEGATIVE); URINE UROBILINOGEN NORMAL (NORMAL); URINE WBC 0-1 /hpf (0-3)
== END ==
LOC: LAB 13:19
PROVIDERS: Family Medicine
DX: N39.0 Urinary tract infection, site not specified (principal)

== ENCOUNTER → 2021-04-04 | Outpatient (CLI) | payer MEDICARE, MEDICAID ==
[2021-04-04 13:02] LABS: HEMATOCRIT 39.3 % (37.0-47.0); HEMOGLOBIN 13.1 g/dL (12.5-16.0); MEAN PLATELET VOLUME 10.3 fl (7.4-10.4); RED BLOOD COUNT 4.42 M/mm3 (4.10-5.30); RED CELL DISTRIBUTION WIDTH 13.2 % (11.5-14.5); WHITE BLOOD COUNT 7.9 K/mm3 (4.8-10.8)
[2021-04-04 13:05] LABS: ALBUMIN 4.1 g/dL (3.4-4.8)
[2021-04-04 13:06] LABS: POTASSIUM 4.2 mmol/L (3.5-5.1)
[2021-04-04 13:07] LABS: CALCIUM 9.9 mg/dL (8.3-10.5)
[2021-04-04 13:08] LABS: TOTAL PROTEIN 7.2 g/dL (6.2-8.1)
[2021-04-04 13:10] LABS: TOTAL BILIRUBIN 0.8 mg/dL (0.2-1.2)
== END ==
LOC: LAB 11:36
PROVIDERS: Family Medicine
DX: E03.9 Hypothyroidism, unspecified (principal); E87.5 Hyperkalemia; R53.1 Weakness; R60.0 Localized edema

== ENCOUNTER → 2021-05-24 | Outpatient (CLI) | payer MEDICARE, MEDICAID ==
[2021-05-24 11:12] LABS: BASO # 0.06 (0.02-0.10); EOS # 0.36 (0.04-0.40); EOS % 4.2 % (1.0-5.0); HEMATOCRIT 42.8 % (37.0-47.0); HEMOGLOBIN 13.8 g/dL (12.5-16.0); LYMPH# 2.33 (1.50-4.00); MEAN CELL VOLUME 91 fl (78-100); MEAN CORPUSCULAR HEMOGLOBIN 29 pg (27-31); MEAN CORPUSCULAR HGB CONC 32 g/dL (33-37); MEAN PLATELET VOLUME 10.3 fl (7.4-10.4); MONO # 0.55 (0.20-0.80); NEU # 5.34 (1.40-6.50); PLATELET COUNT 219 K/mm3 (130-400); RED BLOOD COUNT 4.72 M/mm3 (4.10-5.30); RED CELL DISTRIBUTION WIDTH 13.5 % (11.5-14.5); WHITE BLOOD COUNT 8.7 K/mm3 (4.8-10.8)
[2021-05-24 11:13] LABS: ALBUMIN 4.2 g/dL (3.4-4.8); POTASSIUM 4.2 mmol/L (3.5-5.1)
[2021-05-24 11:14] LABS: CALCIUM 10.9 mg/dL (8.3-10.5)
[2021-05-24 11:16] LABS: TOTAL PROTEIN 7.2 g/dL (6.2-8.1)
[2021-05-24 11:17] LABS: TOTAL BILIRUBIN 0.8 mg/dL (0.2-1.2)
== END ==
LOC: LAB 10:05
PROVIDERS: Family Medicine
DX: R53.1 Weakness (principal); R26.9 Unspecified abnormalities of gait and mobility

== ENCOUNTER → 2021-09-07 | Outpatient (CLI) | payer MEDICARE, MEDICAID ==
[2021-09-07 14:25] LABS: URINE APPEARANCE CLEAR; URINE BILIRUBIN NEGATIVE (NEGATIVE); URINE BLOOD NEGATIVE (NEGATIVE); URINE COLOR YELLOW; URINE GLUCOSE NEGATIVE (NEGATIVE); URINE KETONE NEGATIVE (NEGATIVE); URINE LEUKOCYTE ESTERASE TRACE (NEGATIVE); URINE NITRATE NEGATIVE (NEGATIVE); URINE PROTEIN(semi-quant) TRACE mg/dL (NEGATIVE); URINE UROBILINOGEN NORMAL (NORMAL)
[2021-09-07 14:26] LABS: URINE MUCUS PRESENT (NOT PRESENT)
== END ==
LOC: LAB 13:39
PROVIDERS: Family Medicine
DX: R52 Pain, unspecified (principal)

== ENCOUNTER → 2022-03-26 | Outpatient (CLI) | payer MEDICARE, MEDICAID ==
[2022-03-26 16:11] LABS: URINE APPEARANCE CLOUDY; URINE BILIRUBIN NEGATIVE (NEGATIVE); URINE BLOOD 250 ery/uL (NEGATIVE); URINE COLOR YELLOW; URINE GLUCOSE NEGATIVE (NEGATIVE); URINE KETONE NEGATIVE (NEGATIVE); URINE LEUKOCYTE ESTERASE 2+ (NEGATIVE); URINE MUCUS PRESENT (NOT PRESENT); URINE NITRATE NEGATIVE (NEGATIVE); URINE PROTEIN(semi-quant) 3+ (NEGATIVE); URINE UROBILINOGEN NORMAL (NORMAL); URINE WBC >50 /hpf (0-3)
== END ==
LOC: LAB 13:52
PROVIDERS: Family Medicine
DX: R19.7 Diarrhea, unspecified (principal)

== ENCOUNTER → 2022-04-05 | Outpatient (CLI) | payer MEDICAID ==
[~2022-04-05] MED LIST changes: +BANATROL PLUS1 SOL PO; +IMODIUM A-D2 M2 PO; +MELATONIN10 M2 PO; +NIZORAL CREAM15 GM TP; +NYSTATIN1 EAC2 TP; +ONDANSETRON HYDR4 MG PO; +POTASSIUM CHLO20 ME3 PO; +PRILOSEC OTC20 MG PO; +TUMS DUAL ACTIO1 CTB PO
[2022-04-06 07:08] LABS: BASO # 0.07 K/mm3 (0.02-0.10); EOS # 0.27 K/mm3 (0.04-0.40); EOS % 2.7 % (1.0-5.0); HEMATOCRIT 35.2 % (37.0-47.0); LYMPH# 1.84 K/mm3 (1.50-4.00); MEAN CELL VOLUME 87 fl (78-100); MEAN CORPUSCULAR HEMOGLOBIN 30 pg (27-31); MEAN CORPUSCULAR HGB CONC 34 g/dL (33-37); MEAN PLATELET VOLUME 10.1 fl (7.4-10.4); MONO # 0.81 K/mm3 (0.20-0.80); NEU # 7.07 K/mm3 (1.40-6.50); PLATELET COUNT 249 K/mm3 (130-400); RED BLOOD COUNT 4.05 M/mm3 (4.10-5.30); RED CELL DISTRIBUTION WIDTH 15.2 % (11.5-14.5); WHITE BLOOD COUNT 10.1 K/mm3 (4.8-10.8)
[2022-04-06 07:43] LABS: ALBUMIN 4.1 g/dL (3.4-4.8)
[2022-04-06 07:44] LABS: CALCIUM 10.3 mg/dL (8.3-10.5)
[2022-04-06 07:45] LABS: TOTAL PROTEIN 6.8 g/dL (6.2-8.1)
[2022-04-06 07:47] LABS: TOTAL BILIRUBIN 0.5 mg/dL (0.2-1.2)
[2022-04-06 08:15] LABS: POTASSIUM 2.4 mmol/L (3.5-5.1)
== END ==
LOC: LAB 21:00
DX: K52.9 Noninfective gastroenteritis and colitis, unspecified (principal)

== ENCOUNTER 2022-04-06 08:46 | Emergency (ER) | payer MEDICARE, MEDICAID ==
[~2022-04-06] VITALS: Ht 154.9 cm; Wt 71.5 kg
[~2022-04-06 08:46] MED LIST changes: -BANATROL PLUS1 SOL PO; -IMODIUM A-D2 M2 PO; -MELATONIN10 M2 PO; -NIZORAL CREAM15 GM TP; -NYSTATIN1 EAC2 TP; -ONDANSETRON HYDR4 MG PO; -POTASSIUM CHLO20 ME3 PO; -PRILOSEC OTC20 MG PO; -TUMS DUAL ACTIO1 CTB PO
[2022-04-06 14:17] LABS: CALCIUM 9.8 mg/dL (8.3-10.5)
[2022-04-06 14:27] LABS: POTASSIUM 2.7 mmol/L (3.5-5.1)
[2022-04-06] MEDS ORDERED: NIZORAL CREAM15 GM TP (16:17)
[2022-04-06] MEDS ORDERED: ONDANSETRON HYDR4 MG PO (16:18)
[2022-04-06] MEDS ORDERED: BANATROL PLUS1 SOL PO (16:19)
[2022-04-06] MEDS ORDERED: IMODIUM A-D2 M2 PO (16:20)
[2022-04-06] MEDS ORDERED: MELATONIN10 M2 PO (16:20)
[2022-04-06] MEDS ORDERED: NYSTATIN1 EAC2 TP (16:21)
[2022-04-06] MEDS ORDERED: PRILOSEC OTC20 MG PO (16:22)
[2022-04-06] MEDS ORDERED: TUMS DUAL ACTIO1 CTB PO (16:23)
[2022-04-06 18:36] LABS: CALCIUM 9.7 mg/dL (8.3-10.5)
[2022-04-06 18:53] LABS: POTASSIUM 2.8 mmol/L (3.5-5.1)
[2022-04-07 08:39] LABS: POTASSIUM 3.7 mmol/L (3.5-5.1)
[2022-04-07 08:40] LABS: CALCIUM 9.7 mg/dL (8.3-10.5)
[2022-04-07] MEDS ORDERED: POTASSIUM CHLO20 ME3 PO (09:29)
[2022-04-07 10:19] VITALS: BP 112/85
== END 2022-04-07 09:50 | disposition home or self-care (01) ==
LOC: ED 08:46
PROVIDERS: Family Medicine
DX: E87.6 Hypokalemia (principal); E86.9 Volume depletion, unspecified; R19.7 Diarrhea, unspecified; R79.89 Other specified abnormal findings of blood chemistry
CPT/HCPCS: J2060; J3480; J3490; J7030

== ENCOUNTER → 2022-04-09 | Outpatient (CLI) | payer MEDICARE, MEDICAID ==
[~2022-04-09] MED LIST changes: +BANATROL PLUS1 SOL PO; +IMODIUM A-D2 M2 PO; +MELATONIN10 M2 PO; +NIZORAL CREAM15 GM TP; +NYSTATIN1 EAC2 TP; +ONDANSETRON HYDR4 MG PO; +POTASSIUM CHLO20 ME3 PO; +PRILOSEC OTC20 MG PO; +TUMS DUAL ACTIO1 CTB PO
== END ==
LOC: LAB 09:39
DX: R19.7 Diarrhea, unspecified (principal)

== ENCOUNTER → 2022-04-09 | Outpatient (CLI) | payer MEDICARE, MEDICAID ==
[2022-04-09 06:59] LABS: POTASSIUM 3.7 mmol/L (3.5-5.1)
[2022-04-09 07:01] LABS: CALCIUM 10.2 mg/dL (8.3-10.5)
== END ==
LOC: LAB 05:41
PROVIDERS: Family Medicine
DX: E87.6 Hypokalemia (principal)

== ENCOUNTER → 2022-05-17 | Outpatient (CLI) | payer MEDICARE, MEDICAID ==
[2022-05-17 07:39] LABS: POTASSIUM 4.1 mmol/L (3.5-5.1)
[2022-05-17 07:40] LABS: CALCIUM 10.4 mg/dL (8.3-10.5)
== END ==
LOC: LAB 05:30
PROVIDERS: Family Medicine
DX: E87.1 Hypo-osmolality and hyponatremia (principal)

== ENCOUNTER 2022-06-06 10:52 | Emergency (ER) | payer MEDICARE, MEDICAID ==
[2022-06-06 11:36] LABS: BASO # 0.04 K/mm3 (0.02-0.10); EOS # 0.05 K/mm3 (0.04-0.40); EOS % 0.5 % (1.0-5.0); HEMATOCRIT 36.8 % (37.0-47.0); HEMOGLOBIN 11.7 g/dL (12.5-16.0); LYMPH# 1.33 K/mm3 (1.50-4.00); MEAN CELL VOLUME 96 fl (78-100); MEAN CORPUSCULAR HEMOGLOBIN 31 pg (27-31); MEAN CORPUSCULAR HGB CONC 32 g/dL (33-37); MEAN PLATELET VOLUME 9.4 fl (7.4-10.4); MONO # 0.75 K/mm3 (0.20-0.80); NEU # 7.95 K/mm3 (1.40-6.50); PLATELET COUNT 233 K/mm3 (130-400); RED BLOOD COUNT 3.83 M/mm3 (4.10-5.30); RED CELL DISTRIBUTION WIDTH 15.2 % (11.5-14.5); WHITE BLOOD COUNT 10.2 K/mm3 (4.8-10.8)
[2022-06-06 11:42] LABS: ALBUMIN 3.8 g/dL (3.4-4.8); POTASSIUM 4.6 mmol/L (3.5-5.1); SODIUM 138 mmol/L (136-145)
[2022-06-06 11:43] LABS: CALCIUM 9.7 mg/dL (8.3-10.5)
[2022-06-06 11:44] LABS: GLUCOSE 117 mg/dL (65-105); TOTAL PROTEIN 6.1 g/dL (6.2-8.1)
[2022-06-06] MEDS ORDERED: LASIX20 M1 PO (11:44)
[2022-06-06 11:45] LABS: CARBON DIOXIDE 22 mmol/L (23-31)
[2022-06-06 11:46] LABS: TOTAL BILIRUBIN 1.5 mg/dL (0.2-1.2)
[2022-06-06 11:50] LABS: AST-SGOT 30 U/L (5-34)
[2022-06-06 11:51] LABS: ALT/SGPT 18 U/L (0-55)
[2022-06-06 12:12] LABS: TROPONIN-I < 0.030 ng/mL (<0.030)
[2022-06-06 15:19] VITALS: BP 144/73
[2022-06-06 15:44] LABS: PH-URINE 6.5 (5.0 - 8.0); URINE APPEARANCE CLEAR; URINE BILIRUBIN NEGATIVE (NEGATIVE); URINE BLOOD NEGATIVE (NEGATIVE); URINE COLOR LIGHT YELLOW; URINE GLUCOSE NEGATIVE (NEGATIVE); URINE KETONE NEGATIVE (NEGATIVE); URINE LEUKOCYTE ESTERASE NEGATIVE (NEGATIVE); URINE NITRATE NEGATIVE (NEGATIVE); URINE PROTEIN(semi-quant) TRACE (NEGATIVE); URINE UROBILINOGEN NORMAL (NORMAL)
[2022-06-06] MEDS ORDERED: FLUTICASON0.05 MG/AC NS (23:47)
[2022-06-06] MEDS ORDERED: ALDACTONE25 M1 PO (23:52)
== END 2022-06-06 15:23 | disposition home or self-care (01) ==
LOC: ED 10:52
PROVIDERS: Nurse Practitioner
DX: I11.0 Hypertensive heart disease with heart failure (principal); I50.9 Heart failure, unspecified; Z95.0 Presence of cardiac pacemaker; Z20.822 Contact with and (suspected) exposure to COVID-19; Z99.81 Dependence on supplemental oxygen
CPT/HCPCS: J1940; Q9967

== ENCOUNTER 2022-06-06 22:07 | Emergency (ER) | payer MEDICARE, MEDICAID ==
[~2022-06-06 22:07] MED LIST changes: +LASIX20 M1 PO
[2022-06-06 23:00] LABS: BASO # 0.04 K/mm3 (0.02-0.10); EOS # 0.24 K/mm3 (0.04-0.40); EOS % 2.6 % (1.0-5.0); HEMATOCRIT 37.7 % (37.0-47.0); HEMOGLOBIN 11.9 g/dL (12.5-16.0); LYMPH# 2.42 K/mm3 (1.50-4.00); MEAN CELL VOLUME 95 fl (78-100); MEAN CORPUSCULAR HEMOGLOBIN 30 pg (27-31); MEAN CORPUSCULAR HGB CONC 32 g/dL (33-37); MEAN PLATELET VOLUME 9.4 fl (7.4-10.4); MONO # 0.99 K/mm3 (0.20-0.80); PLATELET COUNT 228 K/mm3 (130-400); RED BLOOD COUNT 3.95 M/mm3 (4.10-5.30); RED CELL DISTRIBUTION WIDTH 15.2 % (11.5-14.5); WHITE BLOOD COUNT 9.3 K/mm3 (4.8-10.8)
[2022-06-06 23:08] LABS: ALBUMIN 3.8 g/dL (3.4-4.8); POTASSIUM 3.5 mmol/L (3.5-5.1)
[2022-06-06 23:10] LABS: CALCIUM 9.9 mg/dL (8.3-10.5)
[2022-06-06 23:11] LABS: TOTAL PROTEIN 6.1 g/dL (6.2-8.1)
[2022-06-06 23:13] LABS: TOTAL BILIRUBIN 1.2 mg/dL (0.2-1.2)
[2022-06-06 23:16] LABS: PARTIAL THROMBOPLASTIN TIME 28.2 SECONDS (21.0-32.0)
[2022-06-06 23:25] LABS: PROTHROMBIN TIME 11.6 SECONDS (9.0-12.0)
[2022-06-06] MEDS ORDERED: FLUTICASON0.05 MG/AC NS (23:47)
[2022-06-06] MEDS ORDERED: ALDACTONE25 M1 PO (23:52)
[2022-06-06 23:55] LABS: URINE APPEARANCE HAZY; URINE BILIRUBIN NEGATIVE (NEGATIVE); URINE BLOOD NEGATIVE (NEGATIVE); URINE COLOR YELLOW; URINE GLUCOSE NEGATIVE (NEGATIVE); URINE KETONE NEGATIVE (NEGATIVE); URINE LEUKOCYTE ESTERASE TRACE (NEGATIVE); URINE NITRATE POSITIVE (NEGATIVE); URINE PROTEIN(semi-quant) TRACE (NEGATIVE); URINE UROBILINOGEN NORMAL (NORMAL)
[2022-06-07 01:01] VITALS: BP 128/66
== END 2022-06-07 00:36 | disposition other institution (70) ==
LOC: ED 22:07
PROVIDERS: Nurse Practitioner
DX: I50.9 Heart failure, unspecified (principal); J90 Pleural effusion, not elsewhere classified; N39.0 Urinary tract infection, site not specified; R09.02 Hypoxemia; Z28.310 Unvaccinated for COVID-19; Z95.0 Presence of cardiac pacemaker; Z20.822 Contact with and (suspected) exposure to COVID-19

== ENCOUNTER 2022-06-07 00:36 | Inpatient (IN) | payer MEDICARE, MEDICAID ==
[~2022-06-07] VITALS: Wt 61.1 kg
[~2022-06-07 00:36] MED LIST changes: +ALDACTONE25 M1 PO; +FLUTICASON0.05 MG/AC NS
[2022-06-07 02:19] VITALS: BP 128/66
[2022-06-07 05:42] VITALS: BP 129/76; BP 129/767
[2022-06-07 07:22] LABS: BASO # 0.04 K/mm3 (0.02-0.10); EOS # 0.26 K/mm3 (0.04-0.40); EOS % 3.1 % (1.0-5.0); HEMOGLOBIN 12.5 g/dL (12.5-16.0); LYMPH# 1.49 K/mm3 (1.50-4.00); MEAN CELL VOLUME 96 fl (78-100); MEAN CORPUSCULAR HEMOGLOBIN 31 pg (27-31); MEAN CORPUSCULAR HGB CONC 32 g/dL (33-37); MEAN PLATELET VOLUME 9.4 fl (7.4-10.4); MONO # 0.85 K/mm3 (0.20-0.80); NEU # 5.67 K/mm3 (1.40-6.50); PLATELET COUNT 204 K/mm3 (130-400); RED BLOOD COUNT 4.07 M/mm3 (4.10-5.30); RED CELL DISTRIBUTION WIDTH 15.1 % (11.5-14.5); WHITE BLOOD COUNT 8.3 K/mm3 (4.8-10.8)
[2022-06-07 07:31] LABS: ALBUMIN 3.7 g/dL (3.4-4.8); POTASSIUM 3.7 mmol/L (3.5-5.1); SODIUM 143 mmol/L (136-145)
[2022-06-07 07:32] LABS: CALCIUM 9.8 mg/dL (8.3-10.5)
[2022-06-07 07:33] LABS: GLUCOSE 98 mg/dL (65-105)
[2022-06-07 07:34] LABS: TOTAL PROTEIN 5.9 g/dL (6.2-8.1)
[2022-06-07 07:35] LABS: CARBON DIOXIDE 25 mmol/L (23-31); TOTAL BILIRUBIN 1.1 mg/dL (0.2-1.2)
[2022-06-07 07:39] LABS: AST-SGOT 26 U/L (5-34)
[2022-06-07 07:40] LABS: ALT/SGPT 17 U/L (0-55)
[2022-06-07 07:48] LABS: TROPONIN-I < 0.030 ng/mL (<0.030)
[2022-06-07 09:56] VITALS: BP 122/82
[2022-06-07 14:07] VITALS: BP 125/75
[2022-06-08 09:05] VITALS: BP 100/62
== END 2022-06-08 10:14 | disposition hospice, inpatient (51) | DRG 292 ==
LOC: MED/SURG 00:36
PROVIDERS: ADMIT Nurse Practitioner
DX: I11.0 Hypertensive heart disease with heart failure (principal); N39.0 Urinary tract infection, site not specified; I50.9 Heart failure, unspecified; E03.9 Hypothyroidism, unspecified; I48.91 Unspecified atrial fibrillation; K21.9 Gastro-esophageal reflux disease without esophagitis; I73.9 Peripheral vascular disease, unspecified; F41.9 Anxiety disorder, unspecified; Z66 Do not resuscitate; Z51.5 Encounter for palliative care; F03.90 Unspecified dementia, unspecified severity, without behavioral disturbance, psychotic disturbance, mood disturbance, and anxiety; Z79.01 Long term (current) use of anticoagulants; Z95.0 Presence of cardiac pacemaker; Z90.5 Acquired absence of kidney; Z86.73 Personal history of transient ischemic attack (TIA), and cerebral infarction without residual deficits; Z88.0 Allergy status to penicillin; Z88.1 Allergy status to other antibiotic agents; Z88.2 Allergy status to sulfonamides
CPT/HCPCS: J0696

== ENCOUNTER → 2023-06-03 | Outpatient (CLI) | payer MEDICARE, MEDICAID | LOC: RAD 09:25 | DX: Z47.89 Encounter for other orthopedic aftercare (principal); S52.501D Unspecified fracture of the lower end of right radius, subsequent encounter for closed fracture with routine healing; S52.611D Displaced fracture of right ulna styloid process, subsequent encounter for closed fracture with routine healing ==

== ENCOUNTER → 2023-07-01 | Outpatient (CLI) | payer MEDICARE, MEDICAID | LOC: RAD 10:47 | DX: S52.501D Unspecified fracture of the lower end of right radius, subsequent encounter for closed fracture with routine healing (principal); S52.601D Unspecified fracture of lower end of right ulna, subsequent encounter for closed fracture with routine healing ==